=== PATIENT | male | born 1975 | race Two or more races ===

== ENCOUNTER 2020-09-16 07:59 | Emergency (ER) | payer OTHER ==
[~2020-09-16] VITALS: Ht 177.8 cm; Wt 61.2 kg
[2020-09-16] MEDS ORDERED: cloNIDine HCL 0.1 MG TAB PO ONE (08:15)
[2020-09-16 08:50] LABS: Basophils # (auto) 0 10 ^3/uL (0-0.2); Basophils % (auto) 0.8 % (0.0-2.0); Eosinophils # (auto) 0 10 ^3/uL (0-0.8); Hematocrit 40.1 % (41.0-53.0); Hemoglobin 13.9 g/dL (13.5-17.5); Lymphocytes % (auto) 16.7 % (10.0-50.0); Mean Corpuscular Hemoglobin 31.4 pg (28.0-32.0); Mean Corpuscular Hgb Conc. 34.7 g/dL (32.0-36.0); Mean Corpuscular Volume 90.4 fL (80.0-100.0); Monocytes # (auto) 0.4 10 ^3/uL (0-1.3); Monocytes % (auto) 6.7 % (0.0-12.0); Neutrophils # (auto) 4.6 10 ^3/uL (1.6-8.6); Neutrophils % (auto) 75.8 % (37.0-80.0); Red Blood Cells 4.44 10^6/uL (4.5-5.90); Red Cell Distribution Width 13.4 % (11.8-14.3); White Blood Cell 6.1 10^3/uL (4.4-10.8)
[2020-09-16 08:53] LABS: Anion Gap 17 (5-15); Blood Urea Nitrogen 9 mg/dL (7-18); Calcium 9.1 mg/dL (8.5-10.1); Carbon Dioxide 17 mmol/L (21-32); Chloride 101 mmol/L (98-107); Glucose 74 mg/dL (74-106); Potassium 4.1 mmol/L (3.5-5.1); Sodium 135 mmol/L (136-145)
[2020-09-16 09:01] LABS: Alanine Aminotransferase 271 U/L (16-61); Alkaline Phosphatase 81 U/L (45-117); Aspartate Aminotransferase 408 U/L (15-37); BUN/Creatinine Ratio 9.9; Bilirubin, Total 0.8 mg/dL (0.2-1.0); GFR African American 115 mL/min; GFR Non-African American 95 mL/min; Total Protein 8.3 g/dL (6.4-8.2)
[2020-09-16] MEDS ORDERED: hydrALAZINE HCL 20 MG/ML VL IV ONE (09:45)
[2020-09-16 10:40] LABS: Urine WBC None Seen /hpf (0 - 3)
[2020-09-16] MEDS ORDERED: amLODIPine BESYLATE 5 MG TAB PO ONE (10:45)
[2020-09-16 10:54] LABS: Urine Bacteria NONE SEEN /hpf (None Seen); Urine Blood Negative /uL (Negative); Urine Mucus FEW (None Seen); Urine Specific Gravity 1.011 (1.001-1.035)
[2020-09-16 11:04] LABS: Alcohol, Urine < 3.0 mg/dL (0-10); Amphetamine Screen, Urine NEGATIVE (NEGATIVE); Barbiturate Scree,Urine NEGATIVE (NEGATIVE); Benzodiazephine Screen, Urine NEGATIVE (NEGATIVE); Cannabinoid Screen, Urine POSITIVE (NEGATIVE); Cocaine Screen, Urine NEGATIVE (NEGATIVE); Opiate Scree,Urine NEGATIVE (NEGATIVE); Phencyclidine Screen, Urine NEGATIVE (NEGATIVE)
[2020-09-16 11:24] VITALS: BP 167/95
[2020-09-16] MEDS ORDERED: HYDROcodone-ACET 5/325MG TAB PO ONE (12:00)
== END 2020-09-16 12:27 | disposition home or self-care (01) ==
LOC: ER 07:59
DX: I16.0 Hypertensive urgency (principal); F12.10 Cannabis abuse, uncomplicated; F17.210 Nicotine dependence, cigarettes, uncomplicated
CPT/HCPCS: 36415; 80053; 80307; 81001; 84484; 85025; 96374; 99284; J0360

== ENCOUNTER 2021-02-06 09:07 | Emergency (ER) | payer OTHER ==
[~2021-02-06] VITALS: Ht 182.9 cm; Wt 68.0 kg
[2021-02-06] MEDS ORDERED: cloNIDine HCL 0.1 MG TAB PO ONE (09:15)
[2021-02-06 10:33] VITALS: BP 149/100
== END 2021-02-06 11:02 | disposition home or self-care (01) ==
LOC: ER 09:07
DX: B34.9 Viral infection, unspecified (principal); F17.210 Nicotine dependence, cigarettes, uncomplicated; Z20.822 Contact with and (suspected) exposure to COVID-19
CPT/HCPCS: 36415; 87426

== ENCOUNTER 2021-11-13 11:43 | Emergency (ER) | payer BC, OTHER ==
[~2021-11-13] VITALS: Ht 182.9 cm; Wt 68.2 kg
[2021-11-13 13:22] VITALS: BP 125/93
[2021-11-13] MEDS ORDERED: AMOX-277 PO (14:06)
[2021-11-13] MEDS ORDERED: IBUP800T27 PO (14:06)
[2021-11-13] MEDS ORDERED: IBUPROFEN 800 MG TAB PO ONE (14:15)
== END 2021-11-13 14:15 | disposition home or self-care (01) ==
LOC: ER 11:43
DX: K04.7 Periapical abscess without sinus (principal); H66.92 Otitis media, unspecified, left ear; F17.210 Nicotine dependence, cigarettes, uncomplicated

== ENCOUNTER 2022-02-06 07:50 | Emergency (ER) | payer BC, OTHER ==
[~2022-02-06] VITALS: Ht 182.9 cm; Wt 59.2 kg
[~2022-02-06 07:50] MED LIST: AMOX-277 PO; IBUP800T27 PO
[2022-02-06 08:15] VITALS: BP 141/94
[2022-02-06] MEDS ORDERED: KETOROLAC TROMETH 60MG/2ML VIAL IM ONE (08:30)
[2022-02-06] MEDS ORDERED: IBUP800T27 PO (08:43)
[2022-02-06] MEDS ORDERED: METH750T22 PO (08:43)
== END 2022-02-06 08:49 | disposition home or self-care (01) ==
LOC: ER 07:50
DX: M54.42 Lumbago with sciatica, left side (principal); I10 Essential (primary) hypertension; F17.210 Nicotine dependence, cigarettes, uncomplicated; Z79.1 Long term (current) use of non-steroidal anti-inflammatories (NSAID); Z79.2 Long term (current) use of antibiotics
CPT/HCPCS: 96372; 99283; J1885

== ENCOUNTER 2023-01-20 16:16 | Emergency (ER) | payer BC, OTHER ==
[~2023-01-20] VITALS: Ht 182.9 cm; Wt 63.6 kg
[~2023-01-20 16:16] MED LIST changes: -AMOX-277 PO; +AMOX875T4 PO; +IBUP-1456 PO; -IBUP800T27 PO; +METH-1182 PO
[2023-01-20] MEDS ORDERED: DICYCLOMINE HCL (10MG/ML) 2 ML AMPULE IM ONE (17:00)
[2023-01-20] MEDS ORDERED: MAALOX PLUS or MAALOX 30 ML PO ONE (17:00)
[2023-01-20 18:42] LABS: Basophils # (auto) 0 10 ^3/uL (0-0.2); Basophils % (auto) 0.2 % (0.0-2.0); Eosinophils # (auto) 0 10 ^3/uL (0-0.8); Eosinophils % (auto) 0.1 % (0.0-7.0); Hemoglobin 13.9 g/dL (13.5-17.5); Lymphocytes # (auto) 1.9 10 ^3/uL (0.4-5.4); Lymphocytes % (auto) 14.8 % (10.0-50.0); Mean Corpuscular Hemoglobin 30.1 pg (28.0-32.0); Mean Corpuscular Hgb Conc. 34.7 g/dL (32.0-36.0); Mean Corpuscular Volume 86.5 fL (80.0-100.0); Monocytes # (auto) 1.1 10 ^3/uL (0-1.3); Monocytes % (auto) 8.2 % (0.0-12.0); Neutrophils # (auto) 9.8 10 ^3/uL (1.6-8.6); Neutrophils % (auto) 76.7 % (37.0-80.0); Red Blood Cells 4.62 10^6/uL (4.5-5.90); Red Cell Distribution Width 13.4 % (11.8-14.3); White Blood Cell 12.8 10^3/uL (4.4-10.8)
[2023-01-20 19:01] LABS: Alanine Aminotransferase 17 U/L (7-40); Albumin 5.2 g/dL (3.2-4.8); Alkaline Phosphatase 57 U/L (46-116); Anion Gap 11 (5-15); Aspartate Aminotransferase 17 U/L (13-40); BUN/Creatinine Ratio 7.6 (10.0-20.0); Blood Urea Nitrogen 17 mg/dL (9-23); Calcium 10.3 mg/dL (8.7-10.4); Carbon Dioxide 20 mmol/L (20-30); Chloride 106 mmol/L (98-107); Glucose 97 mg/dL (74-106); Lipase 40 U/L (12-53); Potassium 3.6 mmol/L (3.5-5.1); Sodium 137 mmol/L (136-145)
[2023-01-20 19:22] LABS: Erythrocyte Sedimentation Rate 10 mm/hr (0-20)
[2023-01-21] MEDS ORDERED: cloNIDine HCL 0.1 MG TAB PO ONE (00:45)
[2023-01-21] MEDS ORDERED: HYDROcodone-ACET 10/325MG TAB PO ONE (00:45)
[2023-01-21 01:07] VITALS: BP 181/112; PULSE 85; RESP 20; TEMP 98.4; O2SAT 100
[2023-01-21] MEDS ORDERED: DICY10CA PO (01:32)
[2023-01-21] MEDS ORDERED: OMEP-335 PO (01:32)
[2023-01-21] MEDS ORDERED: CLON0.2T PO (01:32)
== END 2023-01-21 02:34 | disposition home or self-care (01) ==
LOC: EDUNIT# 16:16 → ER 16:16
DX: R10.13 Epigastric pain (principal); R07.89 Other chest pain; I10 Essential (primary) hypertension; F17.210 Nicotine dependence, cigarettes, uncomplicated; Z79.899 Other long term (current) drug therapy
CPT/HCPCS: 36415; 71250; 74176; 80053; 83690; 83880; 84484; 85025; 85652; 93005; 96372; 99285; J0500

== ENCOUNTER 2023-05-18 15:58 | Emergency (ER) | payer BC, MEDICAID, OTHER ==
[~2023-05-18] VITALS: Ht 182.9 cm; Wt 58.9 kg
[~2023-05-18 15:58] MED LIST changes: +CLON0.2T PO; +DICY10CA PO; +OMEP-335 PO
[2023-05-18 18:51] VITALS: BP 165/98; PULSE 79; RESP 19; TEMP 98; O2SAT 95
[2023-05-18] MEDS ORDERED: AMOX875T4 PO (20:33)
[2023-05-18] MEDS ORDERED: IBUP-1456 PO (20:33)
[2023-05-18] MEDS: cefTRIAXone SOD 1,000 MG VL IM ONE (21:03)
[2023-05-18] MEDS: KETOROLAC TROMETH 60MG/2ML VIAL IM ONE (21:03)
== END 2023-05-18 21:05 | disposition home or self-care (01) ==
LOC: ER 15:58
DX: K04.7 Periapical abscess without sinus (principal); I10 Essential (primary) hypertension; F17.210 Nicotine dependence, cigarettes, uncomplicated
CPT/HCPCS: 96372; 99284; J0696; J1885